=== PATIENT | male | born 1960 | race Caucasian/White ===

== ENCOUNTER 2020-04-22 11:30 | Emergency (ER) | payer BC ==
[~2020-04-22] VITALS: Ht 172.7 cm; Wt 93.6 kg
[2020-04-22 11:54] LABS: BASO % 0.4 % (0.0-1.0); EOS # 0.1 10^3/uL (0.0-0.5); HEMATOCRIT 43.1 % (42.0-52.0); HEMOGLOBIN 14.9 g/dl (13.5-17.5); LYMPH # 1.1 10^3/uL (1.5-5.0); MEAN CORPUSCULAR HEMOGLOBIN 31.4 pg (27.0-33.0); MEAN CORPUSCULAR HGB CONC 34.6 g/dl (32.0-36.5); MEAN CORPUSCULAR VOLUME 90.7 fl (80.0-96.0); MONO # 0.7 10^3/uL (0.0-0.8); NEUTROPHILS # 7.3 10^3/uL (1.5-8.5); NEUTROPHILS % 79.1 % (36.0-66.0); PLATELET COUNT, AUTOMATED 200 10^3/uL (150-450); RED BLOOD COUNT 4.75 10^6/uL (4.30-6.10); WHITE BLOOD COUNT 9.3 10^3/uL (4.0-10.0)
[2020-04-22] MEDS ORDERED: CLAR1TAB13 PO (11:56)
[2020-04-22] MEDS ORDERED: [UNRECOGNIZED DRUG - CODE] (11:56)
[2020-04-22 12:05] LABS: INR 0.94; PROTHROMBIN TIME 12.8 SECONDS (12.5-14.3)
[2020-04-22] MEDS ORDERED: ISOVUE-370 76% 100ML VIAL As Ordered ONE (12:21)
--- NOTE | 2020-04-22 12:21 | REPVR ---
PROCEDURE INFORMATION: Exam: XR Chest, 1 View Exam date and time: 04/22/2020 11:51 AM Age: 60 years old Clinical indication: Other: Chest pain TECHNIQUE: Imaging protocol: XR of the chest Views: 1 view. COMPARISON: No relevant prior studies available. FINDINGS: Lungs: No consolidation. Pleural space: No pleural effusion. No pneumothorax. Heart/Mediastinum: No cardiomegaly. Bones/joints: Unremarkable. IMPRESSION: 1. No evidence of active pulmonary disease. 2. A followup PA and lateral radiograph is recommended when the patient is clinically able. Electronically signed by: Elgin Chan On 04/22/2020 12:21:36 PM
[2020-04-22 12:27] LABS: ALBUMIN 4.1 GM/DL (3.2-5.2); BILIRUBIN,DIRECT 0.1 MG/DL (0.0-0.2); BILIRUBIN,TOTAL 0.4 MG/DL (0.2-1.0); TOTAL PROTEIN 7.3 GM/DL (6.4-8.2)
--- NOTE | 2020-04-22 13:12 | REPVR ---
PROCEDURE INFORMATION: Exam: CT Angiography Chest With Contrast Exam date and time: 04/22/2020 12:59 PM Age: 60 years old Clinical indication: Other: SOB TECHNIQUE: Imaging protocol: Computed tomographic angiography of the chest with intravenous contrast. 3D rendering (Not supervised by radiologist): MIP and/or 3D reconstructed images were created by the technologist. Radiation optimization: All CT scans at this facility use at least one of these dose optimization techniques: automated exposure control; mA and/or kV adjustment per patient size (includes targeted exams where dose is matched to clinical indication); or iterative reconstruction. Contrast material: ISOVUE 370; Contrast volume: 75 ml; Contrast route: INTRAVENOUS (IV); COMPARISON: CR PORTABLE CHEST X-RAY 04/22/2020 11:48 AM FINDINGS: Pulmonary arteries: No pulmonary emboli. Aorta: No aortic aneurysm. No aortic dissection. Lungs: There is bibasilar atelectasis. Pleural space: No pneumothorax. No pleural effusion. Heart: No cardiomegaly. No pericardial effusion. Lymph nodes: No enlarged lymph nodes. Bones/joints: No acute fracture. Soft tissues: Unremarkable. IMPRESSION: There is no evidence of a pulmonary embolism. Electronically signed by: Elgin Chan On 04/22/2020 13:11:52 PM
[2020-04-22] MEDS ORDERED: HEPARIN DRIP 25,000 UNITS in IV 1 EA IV SCH (14:36)
[2020-04-22] MEDS ORDERED: HEPARIN SOD (PORCINE) 5000UNITS/ML 1ML VIAL/SYRINGE IV ONE (14:45)
[2020-04-22] MEDS ORDERED: CLOPIDOGREL 300 MG TAB (PLAVIX) PO ONE (14:45)
[2020-04-22 17:15] VITALS: BP 119/72
--- NOTE | 2020-04-23 13:55 | ECGEPIP ---
[facility] - ED Test Date: 2020-04-22 Pat Name: SAVANNA WILSON Department: Room: - Gender: Male It Applications Manager: SHARON : 1960 Requested By: Barbara Fuentes Order Number: [id number] Reading MD: Barbara Fuentes Measurements Intervals [place] Rate: 58 P: 9 PA: 158 QRS: 65 QRSD: 97 T: 48 QT: 388 QTc: 383 Interpretive Statements SINUS BRADYCARDIA No prior Electronically Signed on 04-23-2020 13:54:54 EDT by Barbara Fuentes
== END 2020-04-22 17:29 | disposition short-term general hospital (02) ==
LOC: M ED 11:30
DX: I24.9 Acute ischemic heart disease, unspecified (principal); R00.1 Bradycardia, unspecified; I10 Essential (primary) hypertension; F41.9 Anxiety disorder, unspecified; Z20.828 Contact with and (suspected) exposure to other viral communicable diseases; Z79.899 Other long term (current) drug therapy
CPT/HCPCS: 36415; 71045; 71275; 80047; 80076; 83690; 84484; 85025; 85610; 93005; 96374; 99285; J1644; Q9967; U0002

== ENCOUNTER 2023-09-23 18:07 | Emergency (ER) | payer BC ==
[~2023-09-23] VITALS: Ht 172.7 cm; Wt 92.3 kg
[~2023-09-23 18:07] MED LIST: CLAR1TAB13 PO; [UNRECOGNIZED DRUG - CODE]
[2023-09-23 18:16] VITALS: TEMP 98.2
[2023-09-23] MEDS ORDERED: LISI10TA22 (18:27)
[2023-09-23] MEDS ORDERED: METO1TAB87 PO (18:27)
[2023-09-23] MEDS ORDERED: ATOR80TA59 (18:27)
[2023-09-23] MEDS ORDERED: ASPI-655 PO (18:27)
[2023-09-23 19:04] LABS: BASO % 0.3 % (0.0-1.0); EOS # 0.1 10^3/uL (0.0-0.5); EOS % 1.3 % (0.0-3.0); HEMATOCRIT 41.3 % (42.0-52.0); HEMOGLOBIN 14.1 g/dl (13.5-17.5); LYMPH # 1.2 10^3/uL (1.5-5.0); LYMPH % 11.9 % (24.0-44.0); MEAN CORPUSCULAR HEMOGLOBIN 31.5 pg (27.0-33.0); MEAN CORPUSCULAR HGB CONC 34.1 g/dl (32.0-36.5); MEAN CORPUSCULAR VOLUME 92.4 fl (80.0-96.0); MONO # 0.8 10^3/uL (0.0-0.8); MONO % 8.2 % (2.0-8.0); NEUTROPHILS # 7.6 10^3/uL (1.5-8.5); NEUTROPHILS % 78.1 % (36.0-66.0); PLATELET COUNT, AUTOMATED 161 10^3/uL (150-450); RED BLOOD COUNT 4.47 10^6/uL (4.30-6.10); WHITE BLOOD COUNT 9.7 10^3/uL (4.0-10.0)
[2023-09-23 19:15] LABS: INR 0.97; PROTHROMBIN TIME 12.6 SECONDS (12.5-14.5)
[2023-09-23 19:34] LABS: LIPASE 28 U/L (12-53)
[2023-09-23 19:36] LABS: ALBUMIN 3.9 G/DL (3.2-5.2); ALKALINE PHOSPHATASE 82 U/L (46-116); ALT/SGPT 39 U/L (7.0-40); AST/SGOT 21 U/L (<34); BILIRUBIN,DIRECT 0.2 MG/DL (<0.4); BILIRUBIN,TOTAL 0.5 MG/DL (0.3-1.2); BLOOD UREA NITROGEN 16 MG/DL (9-23); CALCIUM LEVEL 9.4 MG/DL (8.3-10.6); CARBON DIOXIDE LEVEL 29 MMOL/L (20-31); CHLORIDE LEVEL 103 MMOL/L (98-107); CK-MB VALUE MASS 2.9 NG/ML (<3.6); CPK CREATINE PHOSPHOKINASE 212 U/L (46-171); CREATININE FOR GFR 0.99 MG/DL (0.70-1.30); GLOMERULAR FILTRATION RATE > 60.0 (>49); GLUCOSE, FASTING 102 MG/DL (74-106); MB/CK RELATIVE INDEX 1.36 (< OR =4); POTASSIUM SERUM 4.7 MMOL/L (3.5-5.1); SODIUM LEVEL 136 MMOL/L (136-145); TOTAL PROTEIN 6.6 G/DL (5.7-8.2)
[2023-09-23 19:38] LABS: RSV AMPLIFICATION NEGATIVE (NEGATIVE)
[2023-09-23 21:01] VITALS: BP 144/73; O2SAT 98
== END 2023-09-23 21:13 | disposition home or self-care (01) ==
LOC: M ED 18:07
DX: R07.9 Chest pain, unspecified (principal); I25.2 Old myocardial infarction; I10 Essential (primary) hypertension; Z79.82 Long term (current) use of aspirin; Z79.811 Long term (current) use of aromatase inhibitors; Z79.02 Long term (current) use of antithrombotics/antiplatelets; Z79.899 Other long term (current) drug therapy